=== PATIENT | female | born 2000 | race Caucasian/White ===

== ENCOUNTER 2022-03-25 12:46 | Emergency (ER) | payer MEDICAID ==
[~2022-03-25] VITALS: Ht 160 cm; Wt 81.6 kg
[2022-03-25 12:51] VITALS: BP 123/106
--- NOTE | 2022-03-25 12:51 | NUR ---
21 Y/O F BILAT EAR PAIN X5 DAYS. WENT TO URGENT CARE RECEIVED AMOXICILLIN, IBUPROFEN, AND EAR DROPS WITH NO RELIEF. 09/07 PAIN. WITH NAUSEA, VOMITING MEDHX: DENIES ALLERGIES: NORCO
[2022-03-25] MEDS ORDERED: KETOROLAC 30 MG/ML VIAL IM ONE (13:30)
[2022-03-25] MEDS ORDERED: CIPR7.5S OT (13:30)
[2022-03-25 15:32] VITALS: BP 120/100
--- NOTE | 2022-03-25 15:32 | NUR ---
Patient discharged with v/s stable. Written and verbal after care instructions given and explained. Patient alert, oriented and verbalized understanding of instructions. Ambulatory with steady gait. All questions addressed prior to discharge. ID band removed. Patient advised to follow up with PMD. Rx of CIPRODEX OTIC SUSPENSION given. Patient educated on indication of medication including possible reaction and side effects. Opportunity to ask questions provided and answered.
== END 2022-03-25 15:32 | disposition home or self-care (01) ==
LOC: MED 12:46
DX: H60.92 Unspecified otitis externa, left ear (principal); R03.0 Elevated blood-pressure reading, without diagnosis of hypertension; Z88.5 Allergy status to narcotic agent; Z88.6 Allergy status to analgesic agent; Z79.899 Other long term (current) drug therapy
CPT/HCPCS: 81025; 96372; 99283; J1885

== ENCOUNTER 2023-08-27 17:55 | Emergency (ER) | payer MEDICAID ==
[~2023-08-27] VITALS: Ht 160 cm; Wt 93.9 kg
[~2023-08-27 17:55] MED LIST: CIPR7.5S OT
[2023-08-27 19:11] VITALS: BP 136/99; PULSE 105; RESP 18; TEMP 99.8; O2SAT 99
[2023-08-27] MEDS ORDERED: KETOROLAC 30 MG/ML VIAL IM ONE (19:50)
[2023-08-27] MEDS ORDERED: AMOX-1230 PO (20:03)
[2023-08-27 20:31] LABS: BASOPHILS # (AUTO) 0.1 K/uL (0.00-0.22); BASOPHILS % (AUTO) 1.1 % (0.0-2.0); EOSINOPHILS # (AUTO) 0.1 K/uL (0-0.4); EOSINOPHILS % (AUTO) 0.9 % (0.0-4.0); HEMATOCRIT 40.5 % (36-48); HEMOGLOBIN 13.6 g/dL (12.0-16.0); LYMPHOCYTES # (AUTO) 2.6 K/uL (2.5-16.5); LYMPHOCYTES % (AUTO) 20.2 % (20.5-51.1); MEAN CORPUSCULAR HEMOGLOBIN 28 pg (27-31); MEAN CORPUSCULAR HGB CONC 34 g/dL (33-37); MEAN CORPUSCULAR VOLUME 84.4 fL (80-94); MONOCYTES # (AUTO) 0.8 K/uL (0.8-1.0); NEUTROPHILS # (AUTO) 9.2 K/uL (1.8-7.7); NEUTROPHILS % (AUTO) 71.8 % (42.2-75.2); PLATELET COUNT (AUTO) 408 K/uL (140-450); RED CELL DISTRIBUTION WIDTH 14.3 % (11.6-13.7); WHITE BLOOD COUNT (AUTO) 12.8 K/uL (4.8-10.8)
[2023-08-27 20:58] LABS: ANION GAP 11.5 (8-16); CALCIUM 9.2 mg/dL (8.5-10.1); CARBON DIOXIDE 27.2 mmol/L (21-32); CREATININE 0.7 mg/dL (0.6-1.3); POTASSIUM 3.7 mmol/L (3.5-5.1)
[2023-08-27 23:25] VITALS: BP 136/99; PULSE 105; RESP 18; TEMP 99.8; O2SAT 99
== END 2023-08-27 23:25 | disposition home or self-care (01) ==
LOC: MED 17:55
DX: H60.93 Unspecified otitis externa, bilateral (principal); H93.13 Tinnitus, bilateral; Z88.5 Allergy status to narcotic agent; Z88.6 Allergy status to analgesic agent; Z79.899 Other long term (current) drug therapy
CPT/HCPCS: 36415; 70481; 80048; 85025; 96372; 99285; J1885; Q9967